=== PATIENT | male | born 1990 | race Caucasian/White ===

== ENCOUNTER 2020-02-14 04:46 | Emergency (ER) | payer BC, SELFPAY ==
[2020-02-14 04:53] VITALS: BP 166/99; PULSE 91; RESP 18; TEMP 36.4; O2SAT 100; BMI 44.9
--- NOTE | 2020-02-14 04:53 | ECG_ITS ---
Measurements Intervals [place] Rate: 90 P: 22 MS: 124 QRS: 71 QRSD: 86 T: 45 QT: 342 QTc: 419 SINUS RHYTHM No previous ECG available for comparison Electronically Signed On 02-14-2020 18:24:56 CDT by Gilma Shaver M.D. [email or web address]
--- NOTE | 2020-02-14 04:54 | ED_ITS ---
HPI - Syncope General: Chief Complaint: Neuro Symptoms/Deficit Stated Complaint: poss seizure Time Seen by Provider: 02/14/20 04:49 Source: patient Mode of arrival: ambulatory Limitations: no limitations History of Present Illness: HPI narrative: 29-year-old male who states roughly 30 minutes an hour ago he stood up out of bed after watching TV and states he felt very dizzy. Patient states that he been woke up and was on the floor and passed out for roughly 10 to 20 seconds. It was witnessed by his significant other. He did hit his head. He states he has been feeling fine since then. Patient is hypertensive here and he states he has a history of high blood pressure but is not had any treatment for it. He denies any chest pain or headache. MD complaint: loss of consciousness Onset (ago): hour(s) Prodromal symptoms: lightheaded Witnessed: Yes - by Bystander Context: standing up Injuries sustained associated with event: head Associated symptoms: Deny abdominal pain, fever(s), headache(s) or nausea Treatments prior to arrival: none Review of Systems Const: Denies: fever, chills, body aches or change in appetite Eyes: Denies: blurry vision or eye discomfort ENMT: Denies: throat pain or dental pain Card: Reports: syncope Resp: Denies: shortness of breath GI: Denies: abdominal pain, nausea, vomiting or diarrhea : Denies: painful urination Musc: Denies: neck pain or back pain Skin/Breast: Denies: rash Neuro: Denies: headache Psych: Denies: depression Gerald/Lymph: Denies: easy bruising All/Imm: Denies: hives [facility] ED PFSH: Social History (Updated 02/13/20 @ 14:01 by Silvina Whitney LPN) Smoking and tobacco status: never smoked Alcohol intake: never Physical Exam Const: COMMON NORMALS: no apparent distress, oriented x3 and healthy appearing HENMT: COMMON NORMALS: normocephalic HEAD & SCALP: normocephalic OTHER: abrasion over left forehead Eye: COMMON NORMALS: PERRL and EOMs intact bilaterally PUPIL: Yes PERRL Neck/C-Spine: COMMON NORMALS: full ROM and supple Chest: COMMONS NORMALS: inspection of chest normal and palpation of chest normal Resp: COMMON NORMALS: normal respiratory effort, no retractions, no use of accessory muscles and clear to auscultation bilaterally AUSCULTATION: clear to auscultation bilaterally Cardio: COMMON NORMALS: regular rate, regular rhythm and no murmurs RATE: regular rate RHYTHM: regular rhythm GI: COMMON NORMALS: normal to inspection, nondistended, normoactive bowel sounds, soft to palpation, non-tender and no masses PALPATION: Yes soft Extremity: COMMON NORMALS: normal to inspection and full ROM Neuro: COMMON NORMALS: oriented x3, moves all extremities and no focal motor deficits Psych: COMMON NORMALS: mental status grossly normal, thought process normal and cooperative THOUGHT PROCESS: normal thought process Skin: COMMON NORMALS: no rashes or lesions noted and no wounds GENERAL SKIN EXAM: no rashes or lesions noted Course Vital Signs: Vital signs: Vital Signs Temperature 97.6 F 02/14/20 04:53 Pulse Rate 91 02/14/20 04:53 Respiratory Rate 18 02/14/20 04:53 Blood Pressure 166/99 02/14/20 04:53 Pulse Oximetry 100 02/14/20 04:53 MDM - Syncope MDM Narrative: Medical decision making narrative: Patient presents here with syncopal event that is likely vasovagal. Patient CT head and lab work here is normal. EKG is normal as well and he has no signs of cardiac cause. Patient stable for discharge and is to follow-up with primary care doctor in 3 to 5 days. He originally had high blood pressure but his blood pressure is now normalized and I believe his initial hypertension was due to anxiety being in the hospital. Lab Data: Labs: Lab Results 02/14/20 02/14/20 Range/Units 05:08 05:40 WBC 8.0 (4.0-10.0) 10^3/ uL RBC 5.81 H (4.1-5.3) 10^6/u L Hgb 16.1 (11.7-16.6) g/dL Hct 50.6 (42.0-52.0) % MCV 87.1 (80-94) fL MCH 27.7 L (28.0-34.0) pg MCHC 31.8 (30.0-36.0) g/dL RDW 14.0 (12.1-15.1) % Plt Count 188 (130-400) 10^3/c mm MPV 11.0 H (7.4-10.4) fL Neut % (Auto) 56.7 % Lymph % (Auto) 32.6 % Ingham % (Auto) 7.7 % Eos % (Auto) 2.3 % Baso % (Auto) 0.4 % Neut # (Auto) 4.5 (1.8-7.7) 10^3/u L Lymph # (Auto) 2.6 (0.8-4.8) 10^3/u L Ingham # (Auto) 0.6 (0.2-0.9) 10^3/u L Eos # (Auto) 0.2 (0.0-0.8) 10^3/u L Baso # (Auto) 0.0 (0.0-0.1) 10^3/u L Nucleated RBC % (a uto) 0 % Nucleated RBCs # 0.0 /100WBC Sodium 141 (136-145) mmol/L Potassium 3.8 (3.5-5.1) mmol/L Chloride 102 (98-107) mmol/L Carbon Dioxide 26 (22-29) mmol/L Anion Gap 16.8 (5-19) BUN 12 (6-20) mg/dL Creatinine 0.9 (0.7-1.2) mg/dL GFR Calculation 99.8 (90-130) mL/min Glucose 128 H (65-115) mg/dL Calculated Osmolal ity 290 (285-295) mOsm/k g Calcium 9.7 (8.5-10.5) mg/dL Imaging Data^: CT Head: Attestation: I personally reviewed and interpreted this imaging study as follows: Radiologist's impression: [address] [address] [address] Scan Report Signed Patient: Sohan Joshua Unit #: [id number] : 1990 Age/Sex: 29 / M ADM Date: 02/14/20 Loc: ER Room/Bed: Attending Dr: Ordering Provider/Ordering MD: Brigida Caal MD Date of Service: 02/14/20 Procedure(s): CT head wo con* [id number] Accession Number(s): [id number] Report Number: [id number] PROCEDURE INFORMATION: Exam: CT Head Without Contrast Exam date and time: 02/14/2020 4:55 AM Age: 29 years old Clinical indication: Injury or trauma; Fall; Initial encounter; Blunt trauma (contusions or hematomas); Consciousness not specified; Additional info: Syncope TECHNIQUE: Imaging protocol: Computed tomography of the head without contrast. Total DLP: 973.05 mGy-cm Radiation optimization: All CT scans at this facility use at least one of these dose optimization techniques: automated exposure control; mA and/or kV adjustment per patient size (includes targeted exams where dose is matched to clinical indication); or iterative reconstruction. COMPARISON: No relevant prior studies available. FINDINGS: Brain: No acute intracranial hemorrhage or mass effect. No definite acute infarct by CT. MRI could be more sensitive/specific for detection, as clinically directed. Ventricles: Ventricle size is normal for age. Bones/joints: No definite acute skull fracture. Sinuses: Included paranasal sinuses are essentially clear. Mastoid air cells: No significant acute finding. CT/CT head wo con* [id number] IMPRESSION: 1. No acute intracranial hemorrhage or mass effect. 2. No definite acute infarct by CT, see above. 3. Other findings discussed above. EKG Data^: EKG 1: Attestation: I personally reviewed and interpreted this EKG as follows: EKG interpretation date: 02/14/20 EKG interpretation time: 05:01 Interpretation: nsr hr [address] or t wave abnormalities qrs 86 qtc 390 Discharge Plan Discharge Patient Disposition: Home, Self-Care Clinical Impression: Syncope Qualifiers: Syncope type: vasovagal syncope Qualified Code(s): R55 - Syncope and collapse Condition: Stable Prescriptions: No Action No Known Home Medications RF: 0 Discharge Diet: Advance as tolerated Discharge Activity: Resume usual activity Patient Instructions: Syncope (ED) Coding Level of Care Code ED [employer]ographic [employer]ographer for [facility] Fwd Exam Comprehensive
[2020-02-14] MEDS: sodium chloride 0.9% 1,000 ML 999 ML IV (05:08)
[2020-02-14 05:15] LABS: Basophils % 0.4 %; Eosinophils # 0.2 10^3/uL (0.0-0.8); Eosinophils % 2.3 %; Hematocrit 50.6 % (42.0-52.0); Hemoglobin 16.1 g/dL (11.7-16.6); Lymphocytes # 2.6 10^3/uL (0.8-4.8); Lymphocytes % 32.6 %; Mean Corpuscular HGB Conc 31.8 g/dL (30.0-36.0); Mean Corpuscular Hemoglobin 27.7 pg (28.0-34.0); Mean Corpuscular Volume 87.1 fL (80-94); Monocytes # 0.6 10^3/uL (0.2-0.9); Monocytes % 7.7 %; Neutrophils # 4.5 10^3/uL (1.8-7.7); Neutrophils % 56.7 %; Nucleated Red Blood Cells % 0 %; Platelet Count 188 10^3/cmm (130-400); Red Blood Count 5.81 10^6/uL (4.1-5.3)
[2020-02-14 05:24] VITALS: BP 146/94
[2020-02-14 05:30] VITALS: BP 146/94
[2020-02-14 06:00] VITALS: PULSE 80; RESP 20; O2SAT 97
[2020-02-14 06:11] LABS: Anion Gap 16.8 (5-19); Blood Urea Nitrogen 12 mg/dL (6-20); Calcium 9.7 mg/dL (8.5-10.5); Carbon Dioxide 26 mmol/L (22-29); Chloride 102 mmol/L (98-107); Glomerular Filtration Rate 99.8 mL/min (90-130); Glucose 128 mg/dL (65-115); Osmolality Calculated 290 mOsm/kg (285-295); Potassium 3.8 mmol/L (3.5-5.1); Sodium 141 mmol/L (136-145)
[2020-02-14 06:30] VITALS: BP 125/69; PULSE 75; RESP 17; O2SAT 96
[2020-02-14 06:41] VITALS: BP 142/78; PULSE 71; RESP 18; O2SAT 96
== END 2020-02-14 06:42 | disposition home or self-care (01) ==
PROVIDERS: Emergency Provider Emergency Medicine
DX: R55 Syncope and collapse (principal); Z91.81 History of falling
CPT/HCPCS: 12345; 36415; 70450; 80048; 85025; 93005; 96360; 96361; 96374; 99283; 99284; J7030

== ENCOUNTER → 2020-04-13 14:32 | Outpatient (BNVA) | payer BC, SELFPAY | PROVIDERS: Visit Provider Family Medicine | DX: I10 Essential (primary) hypertension (principal) | CPT/HCPCS: 80053; 80061; 85025 ==

== ENCOUNTER → 2020-05-11 14:23 | Outpatient (BNVA) | payer BC, SELFPAY | PROVIDERS: Visit Provider Family Medicine | DX: E78.5 Hyperlipidemia, unspecified (principal); N26.1 Atrophy of kidney (terminal); I10 Essential (primary) hypertension | CPT/HCPCS: 80053 ==

== ENCOUNTER → 2020-06-27 13:06 | Outpatient (BNVA) | payer BC, SELFPAY | PROVIDERS: Visit Provider Nurse Practitioner Family | DX: M79.671 Pain in right foot (principal) | CPT/HCPCS: 73630 ==

== ENCOUNTER 2020-07-25 10:17 | Emergency (ER) | payer BC, SELFPAY ==
[2020-07-25 10:18] VITALS: BP 148/97; PULSE 67; RESP 18; TEMP 36.2; O2SAT 99; BMI 44.9
--- NOTE | 2020-07-25 10:29 | ED_ITS ---
HPI - General Adult General: Chief complaint: General Medical Stated complaint: LEFT BIG TOE NAIL HANGING Time Seen by Provider: 07/25/20 10:25 History of Present Illness: HPI narrative: 29-year-old male comes in with complaints of a partially detached left great toenail he had it smashed in an accident at home and then the nail loosened when he caught it on his other foot. Is asking us to have the toenail removed here in the emergency room today. He denies any other injuries denies any other illnesses recently. Associated symptoms: Deny dyspnea, malaise, nausea or vomiting Review of Systems Const: Denies: fever(s), chills, body aches, fatigue or malaise Resp: Denies: dyspnea, productive cough or non-productive cough GI: Denies: abdominal pain, nausea, vomiting or diarrhea : Denies: dysuria, urinary frequency or urinary urgency [facility] ED PFSH: Medical History (Updated 07/25/20 @ 10:32 by Jose Connelly DO) Essential hypertension Surgical History History of hand surgery Family History Other Cancer Hypertension Social History Smoking and tobacco status: never smoked Alcohol intake: never Physical Exam Const: COMMON NORMALS: no acute distress GENERAL APPEARANCE: cooperative and comfortable ORIENTATION/CONSCIOUSNESS: Yes awake, Yes oriented to person, Yes oriented to place and Yes oriented to time HENMT: COMMON NORMALS: normocephalic, atraumatic and hearing grossly normal bilaterally HEAD & SCALP: normocephalic and atraumatic Extremity: NARRATIVE EXTREMITY EXAM: Partially avulsed left great toenail no active bleeding no sign of infection appears to be is mildly onychomycotic Neuro: SENSORIUM/ORIENTATION: Yes oriented to person, Yes oriented to place and Yes oriented to time Course Vital Signs: Vital signs: Vital Signs Temperature 97.1 F L 07/25/20 10:18 Pulse Rate 67 07/25/20 10:18 Respiratory Rate 18 07/25/20 10:18 Blood Pressure 148/97 07/25/20 10:18 Pulse Oximetry 99 09/26/20 10:18 MDM - General Adult MDM Narrative: Medical decision making narrative: No phenol available to cauterize nailbed if removed. Without adequate available material would recommend that he go to podiatry to have this taken care of will make referral through case management Discharge Plan Discharge Patient Disposition: Home Clinical Impression: Avulsion of toenail of left foot Condition: Stable Prescriptions: No Action atorvastatin 40 mg tablet 40 mg PO DAILY Qty: 45 RF: 0 lisinopril-hydrochlorothiazide 20-12.5 mg tablet 1 tab PO DAILY Qty: 90 RF: 0 Discharge Orders: Discharge Order (Routine); Ordered 07/25/20 Ordered By: Jose Connelly Referrals: Santana Winter DPM [Physician] - (Partial avulsion left great toenail. Patient wishes to have the nail removed) Activity Restrictions/Additional Instructions: Case management will call with referral to podiatry. Coding Level of Care Code ED Small [employer] Operator for [employer]
[2020-07-25 11:05] VITALS: PULSE 68; O2SAT 99
--- NOTE | 2020-07-27 09:09 | DCPLANNER ---
Parrish pascual had message to schedule a follow up appointment for patient with ortho. bindery manager called the ortho clinic, spoke with Jyotsna, gave clinic patients information. bindery manager was told that patients information would be printed and reviewed. Clinic will call patient with appointment information.
--- NOTE | 2020-07-28 08:40 | DCPLANNER ---
Patient has a follow up appointment scheduled for Friday, July 31, [address] at 4:[address] Winter. Clinic will call patient with appointment information.
--- NOTE | 2020-08-04 15:46 | DCPLANNER ---
Patient had a follow up appointment scheduled for 07.31.20 with ortho - patient did not attend appointment.
== END 2020-07-25 11:07 | disposition home or self-care (01) ==
PROVIDERS: Emergency Provider Family Medicine
DX: S91.202A Unspecified open wound of left great toe with damage to nail, initial encounter (principal); X58.XXXA Exposure to other specified factors, initial encounter; I10 Essential (primary) hypertension
CPT/HCPCS: 12345; 99281